=== PATIENT | male | born 1950 | race Caucasian/White ===

== ENCOUNTER 2021-11-05 17:10 | Observation (INO) | payer OTHER ==
[~2021-11-05] VITALS: Ht 175.3 cm; Wt 79.6 kg
[2021-11-05] MEDS ORDERED: IOHEXOL-350 75 ML VIAL IV ONE (18:15)
[2021-11-05 18:18] LABS: BASOPHILS % (AUTO) 0.3 % (0.0-5.0); EOSINOPHILS % (AUTO) 0.1 % (0.0-8.0); LYMPHOCYTES % (AUTO) 10.7 % (21.0-51.0); MEAN CORPUSCULAR HEMOGLOBIN 32.8 pg (27.0-33.0); MEAN CORPUSCULAR HGB CONC 33.9 g/dL (32.0-36.0); MEAN CORPUSCULAR VOLUME 96.7 fL (79-99); MONOCYTES % (AUTO) 7.1 % (3.0-13.0); NEUTROPHILS % (AUTO) 81.5 % (40.0-77.0); PLATELET COUNT (AUTO) 164 K/uL (130-400); RED BLOOD CELL COUNT(AUTO) 4.24 MIL/uL (4.50-6.20); RED CELL DISTRIBUTION WIDTH 13.8 % (11.0-15.5); WHITE BLOOD COUNT (AUTO) 7.6 K/uL (4.8-10.8)
[2021-11-05 18:31] LABS: POTASSIUM 3.9 mmol/L (3.5-5.1)
[2021-11-05 18:32] LABS: INR 0.99 (0.85-1.15); PROTHROMBIN TIME 10.8 SEC (9.6-11.6)
[2021-11-05 18:36] LABS: ALBUMIN 3.8 g/dL (3.5-5.0); BILIRUBIN,TOTAL 0.3 mg/dL (0.2-1.0); TOTAL PROTEIN, SERUM 7.1 g/dL (6.0-8.3)
[2021-11-05] MEDS ORDERED: DiphenhydrAMINE HCL 50 MG/ML VIAL ONE (18:55)
[2021-11-05] MEDS ORDERED: DiphenhydrAMINE HCL 50 MG/ML VIAL IV ONE (19:00)
[2021-11-05] MEDS ORDERED: ONDANSETRON 4MG INJ IV PRN (20:00)
[2021-11-05] MEDS ORDERED: CLOPIDOGREL 75MG TAB PO ONE (20:00)
[2021-11-05] MEDS: APIXABAN 5 MG TABLET PO SCH (21:00)
[2021-11-05] MEDS ORDERED: CLOPIDOGREL 75MG TAB ONE (21:10)
[2021-11-05] MEDS: CLINDAMYCIN IVPB 600MG/50ML 50 ML IV SCH (21:17)
[2021-11-05] MEDS ORDERED: APIX2.5T PO (23:14)
[2021-11-05] MEDS ORDERED: SIMV-43 PO (23:15)
[2021-11-05 23:40] VITALS: BP_SYST 167; BP_SYST 168; BP_DIAS 100; BP_DIAS 107
[2021-11-06] MEDS: CLINDAMYCIN IVPB 600MG/50ML 50 ML IV SCH ×2 (03:45→11:41)
[2021-11-06 04:00] VITALS: BP 137/79
[2021-11-06 05:46] LABS: BASOPHILS % (AUTO) 0.3 % (0.0-5.0); HEMATOCRIT 39.7 % (42-54); LYMPHOCYTES % (AUTO) 16.4 % (21.0-51.0); MEAN CORPUSCULAR HEMOGLOBIN 32.1 pg (27.0-33.0); MEAN CORPUSCULAR VOLUME 97.3 fL (79-99); NEUTROPHILS % (AUTO) 70.9 % (40.0-77.0); PLATELET COUNT (AUTO) 171 K/uL (130-400); RED BLOOD CELL COUNT(AUTO) 4.08 MIL/uL (4.50-6.20); RED CELL DISTRIBUTION WIDTH 13.7 % (11.0-15.5)
[2021-11-06 06:00] LABS: MAGNESIUM 1.7 mg/dL (1.80-2.40); PHOSPHORUS 3.3 mg/dL (2.5-4.9); POTASSIUM 4.1 mmol/L (3.5-5.1)
[2021-11-06 08:00] VITALS: BP 136/90
[2021-11-06] MEDS ORDERED: CLOPIDOGREL 75MG TAB PO SCH (09:00)
[2021-11-06] MEDS ORDERED: FAMOTIDINE 20MG TAB PO SCH (09:00)
[2021-11-06] MEDS: APIXABAN 5 MG TABLET PO SCH (11:39)
[2021-11-06 12:00] VITALS: BP 148/89
[2021-11-06] MEDS ORDERED: APIX5TAB PO (12:58)
[2021-11-06] MEDS ORDERED: CLIN-141 PO (12:58)
== END 2021-11-06 15:20 | disposition home or self-care (01) ==
LOC: EDH 17:10 → EDHIP 19:56 → 3CH 23:44
PROVIDERS: ADMIT Hospitalist; ATTEND Hospitalist
DX: I82.403 Acute embolism and thrombosis of unspecified deep veins of lower extremity, bilateral (principal); Z20.822 Contact with and (suspected) exposure to COVID-19; I82.432 Acute embolism and thrombosis of left popliteal vein; D68.59 Other primary thrombophilia; E78.00 Pure hypercholesterolemia, unspecified; E78.5 Hyperlipidemia, unspecified; L03.115 Cellulitis of right lower limb; Z79.01 Long term (current) use of anticoagulants; Z86.718 Personal history of other venous thrombosis and embolism; Z87.19 Personal history of other diseases of the digestive system; Y93.73 Activity, racquet and hand sports
CPT/HCPCS: 36415 ×2; 71045; 71275; 80048; 80053; 83735; 84100; 84484; 85025 ×2; 85378; 85610; 86140; 87635; 93005; 93970; 96365; 96366; 96375; 99285; G0378 ×19; J1200; J2405; J3490 ×3; Q9967